=== PATIENT | male | born 1980 | race Caucasian/White ===

== ENCOUNTER 2021-05-07 14:11 | Emergency (ER) | payer SELFPAY ==
[~2021-05-07] VITALS: Ht 175.3 cm; Wt 109.1 kg
[2021-05-07] MEDS ORDERED: TYLENOL EXTRA500 M2 PO (14:24)
[2021-05-07] MEDS ORDERED: MOTRIN IB200 M1 PO (14:24)
[2021-05-07] MEDS ORDERED: NORCO 325 MG-51 TA1 PO (15:00)
[2021-05-07] MEDS ORDERED: PREDNISONE20 MG PO (15:00)
[2021-05-07 15:17] VITALS: BP 146/97
== END 2021-05-07 15:18 | disposition home or self-care (01) ==
LOC: ED 14:11
DX: G56.03 Carpal tunnel syndrome, bilateral upper limbs (principal)